=== PATIENT | male | born 1980 | race African-American/Black ===

== ENCOUNTER 2016-07-21 12:30 | Emergency (ER) | payer OTHER ==
[2016-07-21] MEDS ORDERED: Diphtheria,Pertussis(Acell),Tetanus Vaccine 0.5 ML Syringe IM ONE (12:43)
[2016-07-21] MEDS ORDERED: Lidocaine 1% 20 ML MDV INJECT ONE (12:44)
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
[2016-07-21] MEDS ORDERED: Bacitracin Oint 1 GM U/D Packet TOP ONE (12:55)
[2016-07-21 13:36] VITALS: BP 151/101
== END 2016-07-21 13:34 | disposition home or self-care (01) ==
LOC: MW.ED 12:30
DX: S61.213A Laceration without foreign body of left middle finger without damage to nail, initial encounter (principal); S61.214A Laceration without foreign body of right ring finger without damage to nail, initial encounter; S61.210A Laceration without foreign body of right index finger without damage to nail, initial encounter; S61.212A Laceration without foreign body of right middle finger without damage to nail, initial encounter; S61.216A Laceration without foreign body of right little finger without damage to nail, initial encounter; Z23 Encounter for immunization; W45.8XXA Other foreign body or object entering through skin, initial encounter
CPT/HCPCS: 12001; 90471; 90715; 99282; 99283-25

== ENCOUNTER 2017-01-17 11:37 | Emergency (ER) | payer SELFPAY ==
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
[2017-01-17] MEDS ORDERED: Acetaminophen/HYDROcodone 325-10 MG Tab PO ONE (11:57)
[2017-01-17 12:57] VITALS: BP 139/90
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
== END 2017-01-17 12:46 | disposition home or self-care (01) ==
LOC: MW.ED 11:37
DX: S62.342A Nondisplaced fracture of base of third metacarpal bone, right hand, initial encounter for closed fracture (principal); S62.354A Nondisplaced fracture of shaft of fourth metacarpal bone, right hand, initial encounter for closed fracture; Y04.2XXA Assault by strike against or bumped into by another person, initial encounter
CPT/HCPCS: 29125; 73120; 99283; A4566; A9270; 29126

== ENCOUNTER 2017-01-22 07:36 | Day surgery (SDC) | payer SELFPAY ==
[~2017-01-22 07:36] MED LIST: Bupivacaine 0.25% 10 ML SDV INJECT ONE; Bupivacaine 0.25% 10 ML SDV ONE
[2017-01-22] MEDS ORDERED: Lactated Ringers 1,000 ML IV SCH (08:00)
[2017-01-22] MEDS ORDERED: Clindamycin Phosphate in D5W 600 MG in Premix Bag 1 BAG IV ONE ×2 (08:00)
[2017-01-22] MEDS ORDERED: Propofol 200 MG/20 ML SDV ONE (08:15)
[2017-01-22] MEDS ORDERED: fentaNYL 100 MCG/2 ML SDV ONE ×2 (08:15→09:25)
[2017-01-22] MEDS ORDERED: Midazolam 1 MG/ML 2 ML SDV ONE (08:15)
[2017-01-22] MEDS ORDERED: Lidocaine 2% 5 ML SDV ONE (08:15)
[2017-01-22] MEDS ORDERED: Ondansetron 4 MG/2 ML SDV ONE (08:15)
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
[2017-01-22] MEDS: fentaNYL 100 MCG/2 ML SDV IVPUSH PRN ×2 (10:15→10:21)
[2017-01-22] MEDS ORDERED: HYDROmorphone 2 MG/ML Syringe IVPUSH ONE (10:19)
--- NOTE | 2017-01-22 10:38 | PCM.POSTAN ---
POST ANESTHESIA ASSESSMENT - MENTAL STATUS Mental Status: Alert, Oriented - RESPIRATORY Respiratory Status: Respiratory Rate WNL, Airway Patent, O2 Saturation Stable - CARDIOVASCULAR CV Status: Pulse Rate WNL, Blood Pressure Stable - GASTROINTESTINAL GI Status: No Symptoms - PAIN Pain Score: 6 - POST OP HYDRATION Hydration Status: Adequate & Stable - OBSERVATIONS Free Text/Narrative:: no anesthesia problems
[2017-01-22 11:56] VITALS: BP 154/102
--- NOTE | 2017-01-25 09:49 | PCM.OPNOTE ---
- General Post-Op/Procedure Note Date of Surgery/Procedure: 01/22/17 Operative Procedure(s): closed reduction pin fixation of right ring finger metacarpal fracture, splinting of right middle finger 3rd metacarpal base fracture Pre Op Diagnosis: right ring finger metacarpal fracture and right midde finger matacarpal fracture Anesthesia Technique: General LMA, Local Primary Surgeon: Dee Cantu Shampoo Person: Rocio Centeno Complications: None Condition: Good
--- NOTE | 2017-01-25 16:37 | OR ---
SURGEON: SARI BUTLER MD DATE OF PROCEDURE: 01/22/2017 PREOPERATIVE DIAGNOSIS: Right ring finger metacarpal fracture and right middle finger metacarpal fracture base. POSTOPERATIVE DIAGNOSIS: Right ring finger metacarpal fracture and right middle finger metacarpal fracture base. PROCEDURES: 1. Closed reduction, pin fixation of right ring finger, metacarpal shaft fracture, and splinting. 2. Splinting of right middle finger 3rd metacarpal base fracture. FISHER MUSSEL: RIOS Sue. ANESTHESIA: General LMA with local. INDICATIONS: Mr. Hernandez is a 36-year-old gentleman with fractures of the right ring finger metacarpal and base of the 3rd metacarpal. Risks and benefits of closed reduction, pinning of the right ring finger metacarpal fracture, and splinting of the 3rd metacarpal fracture discussed. He would like to proceed. Risks including but not limited to, bleeding infection damage to underlying or overlying structures possible need for future interventions and possible scarring. PROCEDURE DETAILS: After informed consent was obtained and placed on the chart the patient was brought to the OR and placed in the supine position, After adequate anesthesia was obtained the arm was prepped and draped and the timeout completed to confirm side and site. One 0.35 and one 0.45 K wire were placed using fluoroscopy for reduction and fixation in a crossed fashion. he tolerated this well and the pins were dressed with a Rola balls. A short arm plaster volar splint was placed and he tolerated this well with correct counts. DISCHARGE: home in stable condition for follow up in 10-14 days for custom splint. Medication for pain rovided. ROLE OF FISHER MUSSEL: Maintaining fingers in appropriate reduction for pinning. KAUSHAL / MATIAS /[id number] TORRES
--- NOTE | 2017-01-25 16:49 | OR ---
SURGEON: SARI BUTLER MD DATE OF PROCEDURE: 01/22/2017 PREOPERATIVE DIAGNOSIS: Right ring finger metacarpal fracture and right middle finger metacarpal fracture base. POSTOPERATIVE DIAGNOSIS: Right ring finger metacarpal fracture and right middle finger metacarpal fracture base. PROCEDURES: 1. Closed reduction, pin fixation of right ring finger, metacarpal shaft fracture, and splinting. 2. Splinting of right middle finger 3rd metacarpal base fracture. NIGHT SHIFT MANAGER: RIOS Sue. ANESTHESIA: General LMA with local. INDICATIONS: Mr. Hernandez is a 36-year-old gentleman with fractures of the right ring finger metacarpal and base of the 3rd metacarpal. Risks and benefits of closed reduction, pinning of the right ring finger metacarpal fracture, and splinting of the right middle finger metacarpal base fracture were discussed with him, and he was in agreement to proceed. Risks were including, but not limited to, bleeding, infection, damage to underlying or overlying structures, possible need for future interventions, and possible scarring. PROCEDURE IN DETAIL: After informed consent was obtained and placed on the chart, the patient was brought to the operating theater and laid in supine position. After adequate general anesthetic was obtained, the area was prepped and draped and a time-out was completed to confirm side and site. The fingers were then anesthetized with a digital block and block of the median nerve. Once adequately blocked, attention was then paid to pin fixation of the ring finger metacarpal, which was done with two crossed 0.45 K-wires in a longitudinal fashion. Fluoroscopy was used to confirm position and attention was then paid to dressing the K-wires with Jurgan balls and Xeroform. Once adequately pinned, the 3rd metacarpal fracture was appreciated to be stable and thus, a short-arm volar splint was placed after Xeroform, Kerlix on the pin sites. The patient tolerated this well. All counts and needles were correct at the end of the case. FOLLOWUP INSTRUCTIONS: The patient will see us in clinic in 10 to 14 days for custom splinting, sooner if any problems, questions, or concerns. DUPLICATE REPORT HEGGTHE / MODL /[id number] [facility] HOSPITALCarly
== END 2017-01-22 11:45 | disposition home or self-care (01) ==
LOC: MERGE 07:36 → MW.SDS 07:36
PROVIDERS: ATTEND Plastic Surgery
DX: S62.312A Displaced fracture of base of third metacarpal bone, right hand, initial encounter for closed fracture (principal); S62.324A Displaced fracture of shaft of fourth metacarpal bone, right hand, initial encounter for closed fracture
CPT/HCPCS: 26608; J2250; J2405; J3010; J7120; 01830; J2704

== ENCOUNTER 2018-06-24 14:24 | Emergency (ER) | payer SELFPAY ==
[2018-06-24] MEDS ORDERED: Sodium Chloride 0.9% 1,000 ML IV ONE ×2 (14:30→15:02)
[2018-06-24] MEDS ORDERED: Lactated Ringers 1,000 ML IV ONE (14:36)
[2018-06-24] MEDS ORDERED: Midazolam 1 MG/ML 2 ML SDV IVPUSH ONE (14:50)
[2018-06-24] MEDS ORDERED: Etomidate 2 MG/ML 20 ML SDV IVPUSH ONE (14:53)
[2018-06-24] MEDS ORDERED: Succinylcholine 200 MG/10 ML MDV IV ONE (14:53)
[2018-06-24] MEDS ORDERED: Rocuronium 100 MG/10 ML MDV IV ONE (14:53)
[2018-06-24] MEDS ORDERED: Sodium Chloride 0.9% 10 ML Syringe FLUSH PRN (14:55)
[2018-06-24] MEDS ORDERED: Sodium Chloride 0.9% 2.5 ML Syringe FLUSH PRN (14:55)
[2018-06-24] MEDS ORDERED: ceFAZolin 2 GM in Premix Bag 1 BAG IV ONE (15:02)
[2018-06-24] MEDS ORDERED: Diphtheria,Pertussis(Acell),Tetanus Vaccine 0.5 ML Syringe IM ONE (15:02)
[2018-06-24 15:26] LABS: CHLORIDE,CL 102 mmol/L (98-107); SODIUM,NA 136 mmol/L (136-148)
--- NOTE | 2018-06-24 15:26 | CR ---
EXAMINATION: Left humerus HISTORY: Trauma COMPARISON: None TECHNIQUE: Single view FINDINGS/IMPRESSION: There are small osseous fragments and subcutaneous air noted within the left antecubital fossa. There is a small fracture component also noted within this region however the exact origin site is not able to be determined on this single image. The proximal humerus appears intact.
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
--- NOTE | 2018-06-24 15:32 | CR ---
EXAMINATION: Portable chest radiograph. HISTORY: Trauma. FINDINGS: There is an endotracheal tube noted tip at the level of the clavicles in good position. Endogastric tube is also noted with side-port at the level of the gastroesophageal junction and tip in the stomach. Bilateral chest tubes are noted with a minimal right pneumothorax. The mediastinum again appears mildly widened. Osseous structures otherwise appear unremarkable. IMPRESSION: 1. Endotracheal tube noted in good position. 2. Endogastric tube noted with side-port at the gastroesophageal junction, however the tip is within the stomach. 3. Bilateral chest tubes with a trace right pneumothorax. 4. Again the mediastinum appears mildly widened for technique.
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
--- NOTE | 2018-06-24 16:51 | PCM.SN ---
- Free Text/Narrative Note: pt see, chart reviewed; cx dictated, [id number]
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
[2018-06-26 05:30] VITALS: BP 148/89
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
== END 2018-06-24 15:15 ==
LOC: MW.ED 14:24
DX: S41.141A Puncture wound with foreign body of right upper arm, initial encounter (principal); S41.142A Puncture wound with foreign body of left upper arm, initial encounter; S31.640A Puncture wound with foreign body of abdominal wall, right upper quadrant with penetration into peritoneal cavity, initial encounter; S31.641A Puncture wound with foreign body of abdominal wall, left upper quadrant with penetration into peritoneal cavity, initial encounter; S31.824A Puncture wound with foreign body of left buttock, initial encounter; S31.144A Puncture wound of abdominal wall with foreign body, left lower quadrant without penetration into peritoneal cavity, initial encounter; S00.531A Contusion of lip, initial encounter; W34.00XA Accidental discharge from unspecified firearms or gun, initial encounter; Y92.511 Restaurant or cafe as the place of occurrence of the external cause; Z23 Encounter for immunization; W32.0XXA Accidental handgun discharge, initial encounter
CPT/HCPCS: 31500; 32551; 36415; 36430; 36556; 36569; 51702; 71045; 72170; 73060; 80053; 83690; 85025; 85610; 86850; 86900; 86901; 86920; 86921; 86922; 90471; 90715; 96365; 99291; G0390; G0480; J0330; J0690; J2250; J3490; J7040; J7120; P9016